=== PATIENT | female | born 1965 | race Caucasian/White ===

== ENCOUNTER → 2017-07-19 | Outpatient (CLI) | payer BC ==
--- NOTE | 2017-07-19 11:13 | REPMRS ---
Patient History The patient states she had a clinical breast exam in 06/2017. Family history of breast cancer in maternal aunt at age 60 and ovarian cancer in maternal cousin at age 50 or over. Digital Woman Screen Mammo: July 19, 2017 - Exam #: [id number] Bilateral CC and MLO view(s) were taken. Technologist: Cat Grant, Technologist Prior study comparison: July 25, 2016, digital woman screen mammo performed at [facility] to [facility]. July 31, 2015, digital woman screen mammo performed at [facility]. FINDINGS: There are scattered fibroglandular densities. There has been no change in the appearance of the mammogram from the prior studies. There is a mild amount of residual fibroglandular tissue which is fairly symmetric. There is no interval development of dominant mass, architectural distortion, or clustered microcalcification suggestive of malignancy. ASSESSMENT: BI-RADS/ACR category 1 mammogram. Negative. Recommendation Routine screening mammogram in 1 year (for women over age 40). This mammogram was interpreted with the aid of an FDA-approved computer-aided dectection system. Electronically Signed By: Ilia Thrasher MD 07/19/17 0113
== END ==
LOC: M WHC 10:04
PROVIDERS: ATTEND Nurse Practitioner Women's Health
DX: Z12.31 Encounter for screening mammogram for malignant neoplasm of breast (principal); Z80.3 Family history of malignant neoplasm of breast

== ENCOUNTER → 2019-08-07 | Outpatient (REF) | payer BC | LOC: M SFHCWAGY 12:53 | PROVIDERS: ATTEND Nurse Practitioner Women's Health | DX: L02.93 Carbuncle, unspecified (principal) ==